=== PATIENT | female | born 1960 | race African-American/Black ===

== ENCOUNTER 2017-12-19 05:07 | Inpatient (IN) | payer OTHER ==
[2017-12-17 13:02] VITALS: BMI 36.2
--- NOTE | 2017-12-19 03:41 | HP ---
History & Physical Update - History History: No Change - Physical Physical: No Change - Assessment Assessment: No Change - Plan Plan: No Change
[~2017-12-19 05:07] MED LIST: CEFAZOLIN 2 GM/D5W 2 GM/50 ML ML IVPB ONE
[2017-12-19] MEDS ORDERED: SEVOFLURANE 250 ML BTL ONE (07:56)
[2017-12-19] MEDS ORDERED: PHENAZOPYRIDINE HCL 100 MG TABLET (FP) PO STA (08:11)
[2017-12-19] MEDS ORDERED: PHENAZOPYRIDINE HCL 100 MG TABLET (FP) PO ONE (08:36)
[2017-12-19] MEDS ORDERED: BUPIVACAINE HCL/PF 0.5% (5MG/ML) 10 ML VIAL ONE (08:41)
[2017-12-19] MEDS ORDERED: ceFAZolin SODIUM 1 GM VIAL IVPB ONE (09:20)
[2017-12-19] MEDS ORDERED: BUPIVACAINE HCL/PF 0.5% (5MG/ML) 10 ML VIAL IJ ONE (11:30)
[2017-12-19] MEDS ORDERED: oxyCODONE HCL 5 MG TABLET PO PRN ×2 (12:09→12:11)
[2017-12-19] MEDS ORDERED: ONDANSETRON 4 MG/2 ML VIAL IVPUSH PRN ×2 (12:12→13:33)
[2017-12-19] MEDS ORDERED: morphine CARPU-JECT 2 MG/1 ML DISP.SYRIN IVPUSH PRN (12:14)
[2017-12-19] MEDS ORDERED: LACTATED RINGERS SOLUTION 1,000 ML/1,000 ML INFUS.BAG IV SCH (12:30)
[2017-12-19] MEDS ORDERED: IBUPROFEN 800 MG/8 ML IJ IVPB ONE (12:45)
[2017-12-19] MEDS: IBUPROFEN 800 MG/8 ML IJ IVPB SCH ×2 (12:45→21:00)
[2017-12-19] MEDS ORDERED: ACETAMINOPHEN 1000 MG/100 ML VIAL (NON FORMULARY) IVPB ONE (13:36)
[2017-12-19] MEDS ORDERED: ACETAMINOPHEN INJECTION 100 ML IVPB ONE (14:01)
--- NOTE | 2017-12-19 14:54 | OP ---
Operative Note - Note: Operative Date: 12/19/17 Pre-Operative Diagnosis: post menopausal bleeding, leiomyoma, voluntary sterilization Operation: robotic assisted hysterectomy, bilateral salpingectomy Surgeon: Rosaura Ingram Tool Crib Lead: Maricruz Olmos Anesthesiologist/QUALITY IMPROVEMENT ENGINEER: Bela Garcia Anesthesia: General Specimens Removed: bilateral salpingx, uterus/cervix Estimated Blood Loss (mls): 50 Fluid Volume Replaced (mls): 1,300 Operative Report Dictated: Yes
--- NOTE | 2017-12-19 14:56 | SURG ---
Surgery Rehabilitation Nurse Note Rehabilitation Nurse: Maricruz Olmos PA-C Date of Service: 12/19/17 Diagnosis: postmenopausal bleeding, leiomyoma, voluntary sterilization Procedure: robotic assisted hystrectomy, bilateral salpingectomy I was present for the entirety of the operative procedure. For further detail, please refer to operative report. Visit type - Case Type Case Type: Scheduled Admission - Emergency Emergency Visit: No - New patient This patient is new to me today: Yes Date on this admission: 12/19/17
[2017-12-19] MEDS ORDERED: ACETAMINOPHEN 325 MG TABLET (FP) PO SCH (17:00)
[2017-12-19] MEDS: CEFAZOLIN 1 GM PUSH 1 GM/10 ML DISP.SYRIN IVPUSH SCH (18:39)
[2017-12-19] MEDS: IBUPROFEN 800 MG/8 ML IJ IVPB PRN (18:54)
[2017-12-19 21:09] LABS: BASO % 0.1 % (0-2.0); HEMATOCRIT 35.5 % (32.4-45.2); HEMOGLOBIN 11.8 GM/dL (10.7-15.3); LYMPH % 9.2 % (8-40); MCH 29.6 pg (25.7-33.7); MCHC 33.3 g/dl (32.0-36.0); MEAN CELL VOLUME 88.9 fl (80-96); MEAN PLT VOLUME 8.3 fl (7.5-11.1); MONO % 2.4 % (3.8-10.2); NEUT % 88.3 % (42.8-82.8); PLATELET COUNT 269 K/MM3 (134-434); RBC 3.99 M/mm3 (3.60-5.2); RDW 13.2 % (11.6-15.6); WHITE BLOOD COUNT 8.6 K/mm3 (4.0-10.0)
[2017-12-19 21:39] LABS: ANION GAP 13 (8-16); BLOOD UREA NITROGEN 13 mg/dL (7-18); CALCIUM 8.3 mg/dL (8.5-10.1); CHLORIDE 101 mmol/L (98-107); CO2 25 mmol/L (21-32); GLUCOSE,RANDOM 154 mg/dL (74-106); POTASSIUM 3.2 mmol/L (3.5-5.1); SODIUM 139 mmol/L (136-145)
[2017-12-19 21:40] LABS: CREATININE 1.2 mg/dL (0.55-1.02)
[2017-12-19] MEDS: ACETAMINOPHEN 325 MG TABLET (FP) PO SCH (22:00)
[2017-12-20] MEDS: CEFAZOLIN 1 GM PUSH 1 GM/10 ML DISP.SYRIN IVPUSH SCH (02:02)
[2017-12-20] MEDS: ACETAMINOPHEN 325 MG TABLET (FP) PO SCH ×2 (04:00→12:02)
[2017-12-20] MEDS: IBUPROFEN 800 MG/8 ML IJ IVPB SCH (05:00)
[2017-12-20] MEDS: IBUPROFEN 800 MG/8 ML IJ IVPB PRN (05:32)
[2017-12-20 05:37] VITALS: BP 125/72; PULSE 78; TEMP 98.4
[2017-12-20] MEDS ORDERED: LACTATED RINGERS SOLUTION 1,000 ML/1,000 ML INFUS.BAG IV STA (08:29)
[2017-12-20 08:55] LABS: ANION GAP 7 (8-16); BLOOD UREA NITROGEN 11 mg/dL (7-18); CALCIUM 8.2 mg/dL (8.5-10.1); CHLORIDE 103 mmol/L (98-107); CO2 31 mmol/L (21-32); CREATININE 0.6 mg/dL (0.55-1.02); GLUCOSE,RANDOM 91 mg/dL (74-106); POTASSIUM 3.1 mmol/L (3.5-5.1); SODIUM 141 mmol/L (136-145)
[2017-12-20 09:00] LABS: BASO % 0.2 % (0-2.0); EOS % 0.1 % (0-4.5); HEMATOCRIT 32.3 % (32.4-45.2); HEMOGLOBIN 10.6 GM/dL (10.7-15.3); LYMPH % 22.5 % (8-40); MCHC 32.9 g/dl (32.0-36.0); MEAN CELL VOLUME 88.2 fl (80-96); MEAN PLT VOLUME 8.2 fl (7.5-11.1); MONO % 8.4 % (3.8-10.2); NEUT % 68.8 % (42.8-82.8); PLATELET COUNT 242 K/MM3 (134-434); RBC 3.66 M/mm3 (3.60-5.2); RDW 12.9 % (11.6-15.6); WHITE BLOOD COUNT 8.1 K/mm3 (4.0-10.0)
[2017-12-20] MEDS ORDERED: INDAPAMIDE 2.5 MG PO SCH (10:00)
[2017-12-20] MEDS ORDERED: PANTOPRAZOLE 20 MG TABLET (FP) PO SCH (10:00)
[2017-12-20] MEDS ORDERED: ENOXAPARIN NA (PORCINE) 40 MG/0.4 ML DISP.SYRIN SQ SCH (10:00)
[2017-12-20] MEDS ORDERED: POTASSIUM CHLORIDE TABS 20 MEQ TABLET.ER (FP) PO ONE (10:45)
--- NOTE | 2017-12-20 10:59 | PN ---
Progress Note (short form) - Note Progress Note: POD#1 Pt seen and examined this am. OOB and ambulated last pm, lala removed this am with planned TOV. No nausea or emesis with clears and having regular diet this am. She did pass a small amount of flatus. Small amount of vaginal blood. Vital Signs Period Temp Pulse Resp BP Sys/Blankenship Pulse Ox Last 24 Hr 97.5 F-99.3 F 68-104 14-20 108-136/60-85 100-100 GEN: A&0x3, NAD CV: RRR Lungs: Cta b/l ABD: soft, non-distended, non-tender. Inc c/d/i with bandaids. LE: no calf tenderness or swelling noted b/l. Lily in place CBC, BMP 02/16/18 07:40 02/16/18 07:40 A/p: 57 yo female s/p robotic hysterectomy with b/l saplingectomy, POD#1 Reviewed the case with Dr. Ingram and Dr. Marx(covering for Nataly ) Pt doing surgically well and plan for discharge today BUN/Cret slightly elevated on initial post-op chem, LR bolus x1 ordered Repleated Potassium, pre-op level was 3.5 as outpt post-op 3.2 and 3.1 Spoke to the nurse and after seeing the patient she did void on her own.
--- NOTE | 2017-12-20 16:33 | PATH ---
Surgical Pathology Report Patient Name: NOBLE GASPAR [facility]. Rec. #: [id number] /Age/Gender: 1960 (Age: 57) / F Account: [id number] Location: [facility] OBS/DIAPHRAGM BUILDER Taken: 12/19/2017 Received: 12/19/2017 Reported: 12/20/2017 Physicians: Rosaura Ingram M.D. Specimen(s) Received A: UTERUS AND CERVIX, FIBROID B: RIGHT FALLOPIAN TUBE C: LEFT FALLOPIAN TUBE Clinical History Pelvic pain, leiomyomatous uterus Final Diagnosis A. UTERUS, CERVIX, FIBROIDS, ROBOTIC LAPAROSCOPIC HYSTERECTOMY: PROLIFERATIVE ENDOMETRIUM. MYOMETRIUM WITH LEIOMYOMATA AND ADENOMYOSIS. CERVIX WITHOUT SIGNIFICANT PATHOLOGIC FINDINGS. BILATERAL FALLOPIAN TUBES WITHOUT SIGNIFICANT PATHOLOGIC FINDINGS. B. FALLOPIAN TUBE, RIGHT, SALPINGECTOMY: UNREMARKABLE FALLOPIAN TUBE INCLUDING FULL LUMINAL PORTION. C. FALLOPIAN TUBE, LEFT, SALPINGECTOMY: UNREMARKABLE FALLOPIAN TUBE INCLUDING FULL LUMINAL PORTION. Electronically Signed Agnieszka Cifuentes M.D. Gross Description A. Received in formalin labeled "uterus and cervix, fibroid," is a 111 g uterus with an attached cervix and no attached adnexa. The specimen measures 8.5 cm from superior to inferior, 5.2 cm from left to right and 5.2 cm from anterior to posterior. The serosa is jones-pink with focal bulging subserosal nodules. The attached cervix measures 2.7 cm in length and averages 2.5 cm in diameter. The ectocervix is pink-jones, smooth and glistening. The endocervix is unremarkable. The endometrial cavity measures 4.2 cm in length and 2.6 cm from cornu to cornu. There is a 2 cm in greatest dimension bulging submucosal nodule. The endometrium is jones-red and averages 0.1 cm in thickness. The myometrium displays multiple intramural nodules, measuring up to 3 cm in greatest dimension. The cut surface of the submucosal, intramural and subserosal nodules is jones, firm to rubbery with whorled architecture. No areas of hemorrhage or necrosis are identified. The remaining myometrium is jones-pink with whorled architecture and averages 2.5 cm in thickness. Separately received within the same container is a 21 g, 4.1 x 3.3 x 2.5 cm fibroid. The cut surface of the fibroid is homogeneous and jones with whorled architecture. No areas of hemorrhage or necrosis are identified. Hadoop Administrator sections are submitted in 13 cassettes as follows: 1-anterior cervix; 2-posterior cervix; 0-5-kqhmpyhm endomyometrium; 8-7-xtuttpeag endomyometrium; 7-submucosal nodule; 1-6-ftijpmccvd nodules; 10-largest bulging subserosal nodule; 11-additional subserosal nodules; 18-71-auackuyyre received fibroid. B. Received in formalin labeled "right fallopian tube," is a 3 cm in length fimbriated fallopian tube. The outer surface is jones-pink and smooth. Sectioning reveals an unremarkable lumen. Hadoop Administrator sections are submitted in 2 cassettes as follows: 1-fimbria; 2-cross sections of fallopian tube. C. Received in formalin labeled "left fallopian tube," is a 2.8 cm in length fimbriated fallopian tube. The outer surface is jones-pink with adhesions. Sectioning reveals an unremarkable lumen. Hadoop Administrator sections are submitted in 2 cassettes as follows: 1-fimbria; 2-cross sections of fallopian tube. [facility]
--- NOTE | 2017-12-31 12:47 | OP ---
DATE OF OPERATION: 12/19/2017 PREOPERATIVE DIAGNOSES: Postmenopausal bleeding, leiomyomatous uterus and voluntary sterilization. OPERATION: Robotic total laparoscopic hysterectomy and bilateral salpingectomy. POSTOPERATIVE DIAGNOSES: Postmenopausal bleeding, leiomyomatous uterus and voluntary sterilization. SURGEON: Olga Chowdary MD MICROSOFT WINDOWS ENGINEER: BEVERLY Adam ANESTHESIOLOGIST: Bela Garcia MD ANESTHESIA: General. FINDINGS: Leiomyomatous uterus and normal tubes and ovaries. ESTIMATED BLOOD LOSS: 50 mL. PROCEDURE: Patient was taken to the operating room, placed in dorsal lithotomy position, prepped and draped in the usual sterile fashion. A timeout was performed in accordance with hospital regulation. Nevarez catheter was inserted into the bladder. Speculum was placed in the vagina. The anterior lip of the cervix grasped with single-tooth tenaculum. Cervix was then dilated to accommodate the VCare device. Tenaculum was removed and VCare uterine manipulator was inserted and Nevarez was inflated. Attention was then drawn to the umbilicus where an 8-mm umbilical incision was made. Veress needle was inserted into the cavity. Approximately 3 to 4 L of CO2 was insufflated. Veress needle was then removed and an 8-mm trocar was then introduced. The laparoscope and camera attached. Visualization revealed a leiomyomatous uterus and normal tubes and ovaries. Two trocars were placed on the left side parallel to the umbilical incision and in the upper abdomen an AirSeal cannula was inserted after incision had been made. A 5-mm AirSeal cannula was inserted into the upper left quadrant under direct visualization. Two other trocars were placed parallel on the right side. The da Bonny robot was then side docked to the patient's bedside and trocars were then inserted. Laparoscope and camera were attached. The trocars were then confirmed position. Instruments were then inserted. LigaSure was inserted on the left and tenaculum and the Endoshears were inserted on the right under direct visualization. After position was taken at the console, control of the da Bonny robot was then used to the right side where uterine ovarian ligament was identified, clamped and cut. Uterine artery was clamped and cut. The vesicouterine reflection was then entered and bladder was bluntly dissected out of the operative field. Cardinal ligament was identified and clamped and cut using the LigaSure. Endoshears were then used to enter the vagina where the uterine manipulator was seen. Same procedure was repeated on the right side. The uterine ovarian ligament was identified, clamped and cut. Uterine artery was identified, clamped and cut. Cardinal ligament was identified, clamped and cut and bladder had been bluntly dissected out of the operative field. The Endoshears were then used to cut the vagina away from the cervix. The cervix and uterus were then removed through the vagina. Tubes were bilaterally grasped and LigaSure used to display and cut the fallopian tubes away. Tubes were then passed off through the vagina. The suture was then passed into the abdomen and was then used to close the cuff in a continuous fashion. Hemostasis was achieved. All pedicles were noted to be hemostatic. Two V-Loc sutures were used to close the cuff. After hemostasis had been achieved, CO2 was removed from the abdomen. Trocars were then undocked from the da Bonny robot. Valsalva maneuver was then done. Trocars were then removed. The estimated blood loss was 50 mL. Incisions were all closed using 4-0 Biosyn in subcuticular fashion. The wound was washed and dressed. Patient had tolerated procedure well. Estimated blood loss again was 50 mL. OLGA CHOWDARY M.D. [id number]
== END 2017-12-20 13:00 | disposition home or self-care (01) | DRG 519 ==
LOC: JASUSAT 05:07 → JSAMEDAYSX 05:08 → J3W 14:23
PROVIDERS: ADMIT Obstetrics & Gynecology; ATTEND Obstetrics & Gynecology
PROC: 0UT7FZZ Resection of Bilateral Fallopian Tubes, Via Natural or Artificial Opening With Percutaneous Endoscopic Assistance (ICD-10-PCS; 2017-12-19)
PROC: 0UT9FZZ Resection of Uterus, Via Natural or Artificial Opening With Percutaneous Endoscopic Assistance (ICD-10-PCS; principal; 2017-12-19 08:15)
PROC: 8E0W4CZ Robotic Assisted Procedure of Trunk Region, Percutaneous Endoscopic Approach (ICD-10-PCS; 2017-12-19 08:15)
DX: D25.9 Leiomyoma of uterus, unspecified (principal); N95.0 Postmenopausal bleeding; N80.0 Endometriosis of uterus; R10.2 Pelvic and perineal pain
CPT/HCPCS: 36415; 80048; 85025; 86850; 86900; 86901; 88302-TC; 88307-TC; 94760

== ENCOUNTER 2022-05-30 17:56 | Inpatient (IN) | payer OTHER ==
[2022-05-30 18:16] VITALS: RESP 18
[2022-05-30] MEDS ORDERED: IBUPROFEN 600 MG TABLET (FP) PO ONE (19:54)
[2022-05-30] MEDS: IBUPROFEN 600 MG TABLET (FP) PO ONE ×2 (19:55→20:17)
[2022-05-30 20:48] LABS: BASO % 0.2 % (0-2.0); HEMATOCRIT 38.1 % (32.4-45.2); HEMOGLOBIN 12.9 GM/dL (10.7-15.3); LYMPH % 41.7 % (8-40); MCH 29.8 pg (25.7-33.7); MCHC 33.9 g/dl (32.0-36.0); MEAN PLT VOLUME 7.2 fl (7.5-11.1); MONO % 11.4 % (3.8-10.2); NEUT % 43.7 % (42.8-82.8); PLATELET COUNT 267 10^3/uL (134-434); RBC 4.33 M/mm3 (3.60-5.2); WHITE BLOOD COUNT 5.9 K/mm3 (4.0-10.0)
[2022-05-30 21:10] LABS: ALBUMIN 3.4 g/dl (3.4-5.0); CALCIUM 9.2 mg/dL (8.5-10.1)
[2022-05-30 21:11] LABS: BLOOD UREA NITROGEN 18.8 mg/dL (7-18)
[2022-05-30 21:14] LABS: CREATININE 0.9 mg/dL (0.55-1.3)
[2022-05-30 21:15] LABS: BILIRUBIN,TOTAL 0.2 mg/dL (0.2-1); TOT PROT 7.6 g/dl (6.4-8.2)
[2022-05-30 22:06] LABS: INR 1.05 (0.83-1.09); PROTHROMBIN TIME (PATIENT) 12.1 SEC (9.7-13.0)
[2022-05-30 22:09] LABS: ACTIVATED PTT 31.9 SECONDS (25.2-36.5)
[2022-05-30] MEDS ORDERED: ENOXAPARIN NA (PORCINE) 100 MG/1 ML DISP.SYRIN SQ ONE ×2 (22:53→23:48)
[2022-05-31] MEDS ORDERED: ENOXAPARIN NA (PORCINE) 100 MG/1 ML DISP.SYRIN SQ SCH (01:30)
[2022-05-31 05:39] VITALS: BMI 34.9
[2022-05-31] MEDS ORDERED: INDAPAMIDE 2.5 MG TABLET PO SCH (10:00)
[2022-05-31] MEDS: PANTOPRAZOLE 40 MG TABLET PO SCH (10:36)
[2022-05-31] MEDS: CHOLECALCIFEROL (VIT D3) 1,000 UNIT (25 MCG) TABLET PO SCH (10:36)
[2022-05-31] MEDS: ENOXAPARIN NA (PORCINE) 100 MG/1 ML DISP.SYRIN SQ SCH ×2 (10:36→21:12)
[2022-05-31] MEDS: CALCIUM 500MG/VIT-D 200 UNITS COMBO TABLET (FP) PO SCH (10:36)
[2022-05-31 10:45] LABS: HEMATOCRIT 36.9 % (32.4-45.2); HEMOGLOBIN 12.6 GM/dL (10.7-15.3); INR 1.12 (0.83-1.09); MCH 30.1 pg (25.7-33.7); MCHC 34.2 g/dl (32.0-36.0); MEAN CELL VOLUME 87.9 fl (80-96); MEAN PLT VOLUME 8.1 fl (7.5-11.1); PLATELET COUNT 265 10^3/uL (134-434); PROTHROMBIN TIME (PATIENT) 12.9 SEC (9.7-13.0); RDW 12.8 % (11.6-15.6); WHITE BLOOD COUNT 4.5 K/mm3 (4.0-10.0)
[2022-05-31 10:48] LABS: ACTIVATED PTT 39.5 SECONDS (25.2-36.5)
[2022-05-31 11:03] LABS: CALCIUM 9.2 mg/dL (8.5-10.1)
[2022-05-31 11:04] LABS: ALBUMIN 3.4 g/dl (3.4-5.0); BLOOD UREA NITROGEN 14.2 mg/dL (7-18); MAGNESIUM 2.2 mg/dL (1.8-2.4)
[2022-05-31 11:07] LABS: CREATININE 0.7 mg/dL (0.55-1.3); PHOSPHOROUS 2.8 mg/dL (2.5-4.9)
[2022-05-31 11:08] LABS: BILIRUBIN,TOTAL 1.3 mg/dL (0.2-1); TOT PROT 6.7 g/dl (6.4-8.2)
[2022-05-31] MEDS: ACETAMINOPHEN 325 MG TABLET (FP) PO PRN ×2 (12:39→21:17)
[2022-05-31] MEDS: INDAPAMIDE 2.5 MG TABLET PO SCH (14:55)
[2022-05-31 19:15] LABS: URINE APPEARANCE CLEAR; URINE BILIRUBIN NEGATIVE (NEGATIVE); URINE COLOR YELLOW; URINE GLUCOSE (UA) NEGATIVE (NEGATIVE); URINE KETONE NEGATIVE (NEGATIVE); URINE LEUK ESTERASE NEGATIVE (NEGATIVE); URINE NITRITE NEGATIVE (NEGATIVE); URINE PROTEIN NEGATIVE (NEGATIVE); URINE UROBILINOGEN 0.2 mg/dL (0.2-1.0)
[2022-06-01] MEDS: PANTOPRAZOLE 40 MG TABLET PO SCH (09:35)
[2022-06-01] MEDS: INDAPAMIDE 2.5 MG TABLET PO SCH (09:35)
[2022-06-01] MEDS: CALCIUM 500MG/VIT-D 200 UNITS COMBO TABLET (FP) PO SCH (09:35)
[2022-06-01] MEDS: CHOLECALCIFEROL (VIT D3) 1,000 UNIT (25 MCG) TABLET PO SCH (09:35)
[2022-06-01 11:54] LABS: INR 1.21 (0.83-1.09)
[2022-06-01 12:16] LABS: ALBUMIN 3.2 g/dl (3.4-5.0); BLOOD UREA NITROGEN 14.6 mg/dL (7-18); CALCIUM 9.4 mg/dL (8.5-10.1)
[2022-06-01 12:19] LABS: CREATININE 0.7 mg/dL (0.55-1.3)
[2022-06-01 12:21] LABS: BILIRUBIN,TOTAL 0.6 mg/dL (0.2-1)
[2022-06-01] MEDS: ENOXAPARIN NA (PORCINE) 100 MG/1 ML DISP.SYRIN SQ SCH (13:36)
[2022-06-01 15:36] VITALS: BP 124/74; PULSE 68; TEMP 97.5
== END 2022-06-01 16:52 | disposition home or self-care (01) | DRG 197 ==
LOC: JER 17:56 → JERFT 17:56 → JERBED 20:04 → J6S 05-31 05:09
PROVIDERS: ADMIT Internal Medicine; ATTEND Internal Medicine
DX: I82.411 Acute embolism and thrombosis of right femoral vein (principal); I10 Essential (primary) hypertension; K21.9 Gastro-esophageal reflux disease without esophagitis; E66.9 Obesity, unspecified; Z68.29 Body mass index [BMI] 29.0-29.9, adult
CPT/HCPCS: 0241U-QW; 36415; 71046-TC-FY; 73562-TC-RT-FY; 80053; 81003; 83735; 84100; 85025; 85027; 85610; 85730; 93005; 93010; 93971-TC; 94010; 99285-25

== ENCOUNTER 2023-12-25 19:38 | Emergency (ER) | payer OTHER ==
[2023-12-25 19:47] VITALS: BP 147/82; PULSE 88; RESP 19; TEMP 97.8; BMI 34.2
[2023-12-25] MEDS ORDERED: ACETAMINOPHEN 325 MG TABLET (FP) ONE (21:40)
[2023-12-25] MEDS: ACETAMINOPHEN 325 MG TABLET (FP) PO ONE (21:54)
[2023-12-25 22:06] LABS: BASO % 1.5 % (0-2.0); EOS % 2.6 % (0-4.5); HEMATOCRIT 38.1 % (32.4-45.2); HEMOGLOBIN 12.7 GM/dL (10.7-15.3); LYMPH % 54.4 % (8-40); MCH 29.8 pg (25.7-33.7); MCHC 33.4 g/dl (32.0-36.0); MEAN CELL VOLUME 89.1 fl (80-96); MEAN PLT VOLUME 7.5 fl (7.5-11.1); MONO % 8.7 % (3.8-10.2); NEUT % 32.8 % (42.8-82.8); PLATELET COUNT 283 10^3/uL (134-434); RBC 4.27 M/mm3 (3.60-5.2); RDW 12.6 % (11.6-15.6); WHITE BLOOD COUNT 5.7 K/mm3 (4.0-10.0)
[2023-12-25 22:12] LABS: INR 1.08 (0.83-1.09); PROTHROMBIN TIME (PATIENT) 12.5 SEC (9.7-13.0)
[2023-12-25 22:15] LABS: ACTIVATED PTT 34.7 SECONDS (25.2-36.5)
[2023-12-25 22:32] LABS: POTASSIUM 3.5 mmol/L (3.5-5.1)
[2023-12-25 22:34] LABS: CALCIUM 9.4 mg/dL (8.5-10.1)
[2023-12-25 22:35] LABS: ALBUMIN 3.2 g/dl (3.4-5.0); BLOOD UREA NITROGEN 17.6 mg/dL (7-18)
[2023-12-25 22:38] LABS: CREATININE 0.7 mg/dL (0.55-1.3)
[2023-12-25 22:39] LABS: TOT PROT 7.3 g/dl (6.4-8.2)
[2023-12-25 22:40] LABS: BILIRUBIN,TOTAL 0.2 mg/dL (0.2-1)
== END 2023-12-25 23:13 | disposition home or self-care (01) ==
LOC: JER 19:38
DX: M79.604 Pain in right leg (principal); I82.401 Acute embolism and thrombosis of unspecified deep veins of right lower extremity; R22.41 Localized swelling, mass and lump, right lower limb
CPT/HCPCS: 36415; 80053; 85025; 85610; 85730; 93971-TC; 99284-25